=== PATIENT | male | born 1965 | race Caucasian/White ===

== ENCOUNTER → 2020-09-01 08:30 | Outpatient (CLI) | payer OTHER ==
[~2020-09-01 08:30] MED LIST: BAYER CHEWABLE81 MG PO; CELEXA20 MG PO; CO Q-10400 MG PO; COZAAR25 MG PO; GLIPIZIDE5 MG PO; GLUCOPHAGE500 MG PO; JARDIANCE10 MG PO; LIPITOR40 MG PO; MULTI-DAY VITAM1 TAB PO; OMEPRAZOLE20 M1 PO; OZEMPIC1 MG/0.75 SC; PROBIOTIC1 EAC1 PO; VISTARIL25 MG PO; VITAMIN C500 M1 PO
[2020-09-03 12:08] VITALS: BMI 36.8
== END | disposition home or self-care (01) ==
LOC: D.HCCECHO 08:30
PROVIDERS: ATTEND Internal Medicine Cardiovascular Disease
DX: I20.9 Angina pectoris, unspecified (principal)

== ENCOUNTER → 2020-09-03 11:25 | Day surgery (SDC) | payer OTHER ==
[~2020-09-03] VITALS: Ht 170.2 cm; Wt 106.6 kg
--- NOTE | ~2020-09-03 | HEMODYNAMI ---
PATIENT:CHRISTIN OROURKE MEDICAL RECORD: [id number] : 67 LOCATION:[facility] ADMISSION DATE: 09/03/20 Generatedon:114:15 Patient name: CHRISTIN OROURKE Patient #: [id number] SSN: : 1965 Date of study: 09/03/2020 Page: Of Hemodynamic Procedure Report Patient Data Patient Demographics Procedure consent was obtained First Name: CHRISTIN Gender: Male Last Name: HAVEN : 1965 Patient #: [id number] Age: 55 year(s) Race: Unknown Additional ID: [id number] Contact details [address]: [address] [place] [address] rd State: [place] City: [place] Zip code: [address] Past Medical History Performed procedures and imaging results Date Procedure Procedure Results Comments Stress testing Positive->Intermediate with SPECT MPI risk Allergies: No known allergies Admission Admission Data Admission Date: 09/03/2020 Admission Time: 11:25 Arrival Date: 09/03/2020 Arrival Time: 0:00 Height (in.): 66.93 BSA: 2.17 (m2) Height (cm.): 170 BMI: 37.02 (kg/m2) Weight (lbs.): 235.9 Weight (kg.): 107 Lab Results Lab Result Date: 09/03/2020 Lab Result Time: 0:00 Biochemistry Name Units Result Min Max BUN mg/dl 16 --(---*)-- 7 18 Creatinine mg/dl 1.1 --(--*-)-- 0.6 1.3 eGFR ml/min 73.09783 *-(----)-- 90 120 NONAFRICAN CBC Name Units Result Min Max Hematocrit % 49.8 --(--*-)-- 42 54 Hemoglobin g/dl 16.8 --(---*)-- 13.5 17.5 Procedure Procedure Types Cath Procedure Diagnostic Procedure C [facility] w/Coronaries Sedation Charges Moderate Sedation 10-24 minutes Procedure Description Procedure Date Procedure Date: 09/03/2020 Procedure Start Time: 14:01 Procedure End Time: 14:13 Procedure Staff Name Function Moo Gibbs MD Performing Physician Devorah Bermudez RT Monitor Misti Diop RT Scrub Terry Berry RN Nurse Procedure Data Cath Procedure Fluoroscopy Diagnostic fluoroscopy Total fluoroscopy Time: 1.6 time: 1.6 min min Diagnostic fluoroscopy Total fluoroscopy dose: 557 dose: 557 mGy mGy Contrast Material Contrast Material Type Amount (ml) Isovue 300 55 Entry Location Entry Primary Successful Side Size Upsize Upsize Entry Closure Succes sful Closure Location (Fr) 1 (Fr) 2 (Fr) Remarks Device Remarks Femoral Right 5 Fr Exoseal artery Estimated blood loss: 10 ml Diagnostic catheters Device Type Used For End Catheter Placement MULTIPACK JL 4.0 5Fr Procedure catheter MULTIPACK 3DRC 5Fr Procedure catheter MULTIPACK Pigtail 5 Fr Ventriculography catheter Procedure Complications No complications Procedure Medications Medication Administration Route Dosage 0.9% NaCl I.V. 100 ml/hr Oxygen etCO2 Nasal cannula 2 l/min Heparin Flush Bag added to field 2 bags (1000units/500ml NS) Lidocaine 2% added to field 20 Versed I.V. 2 mg Fentanyl I.V. 100 mcg Versed I.V. 1 mg Hemodynamics Rest BSA: 2.17 (m2) HGB: 16.8 (g/dl) O2 Consumption: Estimated: 252.23 (ml/min) O2 Co nsumption indexed: Estimated:116.24 (ml/min/m) Heart Rate: 63 (bpm) Pressure Samples Time Site Value (mmHg) Purpose Heart Use Rate(bpm) 14:07 LV 131/2,17 Snapshot 73 14:07 LV 128/0,16 Snapshot 73 14:08 AO 126/80(102) Pullback 75 14:08 LV 137/3,16 Pullback 75 Gradients Valve Time Site 1 Site 2 Mean SEP/DFP Peak To Heart Use (mmHg) (sec/min) Peak Rate (mmHg) (bpm) Aortic 14:08 LV AO 13 19 11 75 137/3,16 126/80(102) Calculations Valve P-P Mean Valve Index Valve Source Name Gradient Area Flow (cm2) Aortic 11 13 11 13 Snapshots Pre Cath Intra NCS Post Cath Vital Signs Time Heart Resp SPO2 etCO2 NIBP (mmHg) Rhythm Pain Sedation Rate (ipm) (%) (mmHg) Status Level (bpm) 13:40:33 66 15 93 31.6 123/74(102) NSR 0 (11) 10(A) , No pain 13:44:46 66 12 94 37.6 120/80(92) NSR 0 (11) 10(A) , No pain 13:48:57 63 30 94 38.3 117/75(96) NSR 0 (11) 10(A) , No pain 13:53:05 64 11 92 35.3 131/82(98) NSR 0 (11) 10(A) , No pain 13:57:15 62 12 93 42.1 121/76(101) NSR 0 (11) 10(A) , No pain 14:01:27 73 16 94 38.3 139/83(118) NSR 0 (11) 10(A) , No pain 14:05:41 76 12 92 37.6 133/78(119) NSR 0 (11) 10(A) , No pain 14:09:51 78 18 93 30.1 128/82(106) NSR 0 (11) 10(A) , No pain Medications Time Medication Route Dose Verified Delivered Reason Notes Eff ectiveness by by 13:38:50 0.9% NaCl I.V. 100 Terry Terry Per ml/hr Jamal Berry physician RN RN 13:38:58 Oxygen etCO2 2 Terry Terry for low 02 Nasal l/min Lorigan Lorigan sats cannula RN RN 13:39:08 Heparin Flush added 2 Terry Terry used for Bag to bags Lorigan Jamal procedure (1000units/500ml field RN RN NS) 13:39:17 Lidocaine 2% added 20ml Terry Terry for local to vial Lorigan Lorigan anesthetic field RN RN 13:53:25 Versed I.V. 2 mg Terry Terry for Lorigan Lorigan sedation RN RN 13:53:32 Fentanyl I.V. 100 Terry Terry for mcg Lorigan Lorigan sedation RN RN 14:00:28 Versed I.V. 1 mg Terry Terry for Lorigan Lorigan sedation RN reinforcing steel placer Log Time Note 13:11:31 Informed consent obtained and on chart 13:13:00 Procedure Status Elective Heart Cath (OP). 13:13:01 Time tracking: Regular hours (M-F 7:00 - 5:00) 13:13:05 Plan of Care:Hemodynamics will remain stable., Cardiac rhythm will remain stable., Comfort level will be maintained., Respiratory function will remain adequate., Patient/ family verbilizes understanding of procedure., Procedure tolerated without complication., Recovers from procedure without complications.. 13:13:12 H&P Date Dictated: 08/15/2020 Within 30 days and on chart., H&P Addendum completed by physician on day of procedure. (MUST COMPLETE FOR ALL OUTPATIENTS). 13:13:21 Patient allergic to No known allergies 13:15:14 Lab Result : BUN 16 mg/dl 13:15:14 Lab Result : eGFR NONAFRICAN 73.76097 ml/min 13:15:14 Lab Result : Creatinine 1.1 mg/dl 13:15:14 Lab Result : Hemoglobin 16.8 g/dl 13:15:14 Lab Result : Hematocrit 49.8 % 13:15:21 Patient Weight : 235.9 lbs 13:15:24 Patient Height : 66.93 inches 13:16:02 Arrival Date: 09/03/2020 12:00:00 AM 13:21:06 Stress Test: yes; abnormal INFERIOR 13:24:34 Terry Berry RN sent for patient. Start room use. 13:28:34 Patient received from Pre/Post Procedure Room to [facility] 2 Alert and oriented. Tansferred to table in Supine position. 13:28:36 Warm blankets applied, and timoteo hugger turned on for patient comfort. 13:28:36 Correct patient and procedure confirmed by team. 13:28:36 ECG and BP/O2 sat monitors applied to patient. 13:38:50 0.9% NaCl 100 ml/hr I.V. was administered by Terry Berry RN; Per physician; Verbal order read back and verified. 13:38:58 Oxygen 2 l/min etCO2 Nasal cannula was administered by Terry Berry RN; for low 02 sats; Verbal order read back and verified. 13:39:08 Heparin Flush Bag (1000units/500ml NS) 2 bags added to field was administered by Terry Berry RN; used for procedure; Verbal order read back and verified. 13:39:17 Lidocaine 2% 20ml vial added to field was administered by Terry Berry RN; for local anesthetic; Verbal order read back and verified. 13:39:21 Vital chart was started 13:44:04 Baseline sample Acquired. 13:44:06 Full Disclosure recording started 13:44:12 Family in waiting room. 13:44:14 Patient NPO since Midnight. 13:44:18 Is the patient allergic to Iodine/contrast media? No. 13:44:19 Is patient on blood thinner?No 13:44:37 Snore? Yes 13:44:38 Sleep apnea? Yes 13:44:45 Patient pain scale 0/10 ?. 13:44:52 IV patent on arrival in left forearm with 0.9% NaCl at [facility]. 13:45:00 Right groin area was prepped with chlora-prep and draped in sterile fashion 13:45:01 Alarms reviewed by R. N. 13:45:02 Sharps counted by scrub and verified by R.N. 13:49:28 If diabetic: On Metformin? Yes 13:49:30 Patient diabetic? Yes. 13:49:35 If on Metformin: Last Dose? 09/01/2020 13:52:43 Physician arrived 13:52:44 --------ALL STOP TIME OUT------ 13:52:45 Final Timeout: patient, procedure, and site verified with staff and physician. All members of the team are in agreement. 13:52:54 Right groin site verified by team. 13:52:58 Fire Safety Assessment: A--An alcohol-based skin anteseptic being used preoperatively., C--Open oxygen or nitrous oxide is being used., D--An ESU, laser, or fiber-optic light is being used. 13:53:02 Physical assessment completed. ASA score P 2 - A patient with mild systemic disease as per Moo Gibbs MD. 13:53:06 3b) 30-44 Moderately reduced kidney function. 13:53:10 Maximum allowable contrast dose (3.7 X eGFR X 0.75)205 ml. 13:53:14 Sedation plan: IV Moderate Sedation Medication:Versed, Fentanyl 13:53:25 Versed 2 mg I.V. was administered by Terry Berry RN; for sedation; Verbal order read back and verified. 13:53:32 Fentanyl 100 mcg I.V. was administered by Terry Berry RN; for sedation; Verbal order read back and verified. 13:58:04 Zero performed for pressure channel P1 14:00:28 Versed 1 mg I.V. was administered by Terry Berry RN; for sedation; Verbal order read back and verified. 14:01:46 Procedure started. 14:01:49 Local anesthetic to right femoral artery with Lidocaine 2% by Moo Gibbs MD.INITIAL ACCESS ONLY 14:03:37 A 5 Fr sheath was inserted into the Right Femoral artery 14:04:05 Use device set Femoral Dx 14:04:07 ACIST Syringe (70039) opened to sterile field. 14:04:08 Bag Decanter (2002S) opened to sterile field. 14:04:08 Medline Cath Pack ([id number]) opened to sterile field. 14:04:09 ACIST Hand Control (69185) opened to sterile field. 14:04:10 ACIST Manifold (46084) opened to sterile field. 14:04:11 DIAGNOSTIC Multipack 5Fr catheter set ([id number]) opened to sterile field. 14:04:12 Tegaderm 4 x 4 (1626W) opened to sterile field. 14:04:13 SHEATH 5FR Mobile ([id number]) opened to sterile field. 14:04:13 EMERALD Guide Wire (383-066) opened to sterile field. 14:04:23 A MULTIPACK JL 4.0 5Fr catheter was advanced over the wire and used for Procedure. 14:04:34 LCA angiography performed. 14:05:44 Catheter removed. 14:06:02 A MULTIPACK 3DRC 5Fr catheter was advanced over the wire and used for Procedure. 14:06:05 RCA angiography performed. 14:06:46 Catheter removed. 14:06:54 A MULTIPACK Pigtail 5 Fr catheter was advanced over the wire and used for Ventriculography. 14:07:36 LV angiography performed. 14:07:39 LV gram done using MONK 14:08:03 EF : 50 % 14:08:14 LV hemodynamics recorded. 14:08:15 Catheter removed. 14:08:19 EXOSEAL 5Fr (EX500) opened to sterile field. 14:08:36 Sheath removed intact; hemostasis achieved with Exoseal to the Right Femoral artery. 14:08:39 Procedure ended.(Physican Out) 14:10:49 Fluoroscopy time 01.60 minutes. 14:10:53 Fluoroscopy dose: 557 mGy 14:10:53 Flurop Dose total: 557 14:10:57 Dose Area Product 28129 mGy/cm. 14:11:36 Contrast amount:Isovue 300 55ml. 14:11:39 Maximum allowable dose exceeded? No. 14:11:43 Sharps counted by scrub and verified by R.N. 14:11:44 Insertion/operative site no bleeding no hematoma. 14:11:48 Post right femoral artery:stable 14:11:53 Post Procedure Pulses reassessed and unchanged 14:12:05 Post-procedure physical assessment completed. ASA score P 2 - A patient with mild systemic disease as per Moo Gibbs MD. 14:12:12 Post procedure rhythm: sinus rhythm 14:12:15 Estimated blood loss: 10 ml 14:12:17 Post procedure instruction explained to patient.Patient verbalizes understanding. 14:12:31 Procedure type changed to Cath procedure, Diagnostic procedure, LHC, C w/Coronaries, Sedation Charges, Moderate Sedation 10-24 minutes 14:12:41 Procedure and supply charges have been captured, reviewed, submitted and are correct. 14:13:08 Procedure Complication : No complications 14:13:11 Vital chart was stopped 14:13:13 [facility] Findings: mild to moderate CAD (<70%) 14:13:21 Operative report dictated upon procedure completion. 14:13:24 Report given to Pre/Post Procedure Room. 14:13:28 Patient transfered to Pre/Post Procedure Room with Stretcher. 14:13:30 Procedure ended. 14:13:30 Full Disclosure recording stopped 14:13:36 End room use (Document Last) 14:14:30 End room use (Document Last) 14:15:07 End room use (Document Last) Device Usage Item Name Manufacture Quantity Catalog Hospital Part Current Minimal L ot# / Number Charge Number Stock Stock Serial# Code ACIST Acist 1 92066 683584 392223 241614 20 Syringe Tube2Tone (00910) Systems Inc Bag Microtek 1 100247 53398 354660 5 Decanter Medical Inc. () Medline Medline 1 [id number] 385666 84446 606252 5 Cath Pack ([id number]) ACIST Hand Acist 1 77001 587341 622903 331910 5 Control Medical (48002) Systems Inc ACIST Acist 1 65559 628841 829226 061485 5 Manifold Medical (59762) Systems Inc DIAGNOSTIC Cardinal 1 [id number] 049479 26449 141321 30 Multipack Health 5Fr catheter set (XT9190) Tegaderm 4 3M 1 1626W 009064 635109 745013 5 x 4 (1626W) SHEATH 5FR Terumo 1 YNS947 343218 989522 409935 5 Mobile (TDT538) EMERALD Cardinal 1 502-405 385354 018178 855776 5 Guide Wire Health (502-691) MULTIPACK Cardinal 1 622192 5 JL 4.0 5Fr Health catheter MULTIPACK Cardinal 1 158881 5 3DRC 5Fr Health catheter MULTIPACK Cardinal 1 254876 5 Pigtail 5 Health Fr catheter EXOSEAL 5Fr Cardinal 1 EX500 760613 537267 502556 10 (EX500) Health Signature Audit [place] Stage Time Signature Unsigned Intra-Procedure 09/03/2020 Devorah Bermudez 2:14:30 PM RT(R) Intra-Procedure 09/03/2020 Terry 2:15:07 PM Jamal RN Intra-Procedure 09/03/2020 Moo Gibbs MD 2:15:33 PM Signatures Performing Physician : Signature : Moo Gibbs MD Date : Time : Monitor : Devorah Bermudez Signature : RT Date : Time : Nurse : Terry Berry Signature : RN Date : Time : [facility] [address] [facility] [place] [address]
[2020-09-03 12:08] VITALS: BP 122/72; Ht 170.2 cm; Wt 106.6 kg
[2020-09-03 12:15] LABS: HEMATOCRIT 49.8 % (42.0-54.0); HEMOGLOBIN 16.8 g/dL (13.5-17.5); LYMPHOCYTES 22.1 % (15-50); MCH 29.9 pg (26.0-34.0); MCHC 33.6 g/dL (31.0-37.0); MCV 88.8 fL (80.0-100.0); MEAN PLATELET VOLUME 8.3 fL (7.4-10.4); MONOCYTES 9.6 % (2-11); NEUTROPHILS 64.3 % (40-80); PLATELET COUNT 149 10x3/uL (130-400); RBC 5.61 10x6/uL (4.20-6.10)
[2020-09-03 12:28] LABS: ANION GAP 14.4 mmol/L (8-16); CALCIUM 9.5 mg/dL (8.5-10.1); CARBON DIOXIDE 24.7 mmol/L (21.0-32.0); CHOL - HDL RATIO 2.6 ratio (2.3-4.9); CREATININE - SERUM 1.1 mg/dL (0.6-1.3); LDL-HDL RATIO 1.1 ratio (1.5-3.5); POTASSIUM - SERUM 4.1 mmol/L (3.5-5.1)
--- NOTE | 2020-09-03 14:31 | NUR ---
PT REC'D TO CATH RECOVERY ROOM 3 VIA STRETCHER. MONITORS ESTAB. AT BS. SEE JALOUSIE INSTALLER FLOWSHEETS. ALARMS ON AND C/L IN REACH.
--- NOTE | 2020-09-03 14:45 | NUR ---
R GROIN SITE SOFT, NO S/S BLEEDING OR HEMATOMA. R LEG/FOOT WARM WITH PALP PULSES AND BRISK CAP REFILL. VSS. PT RESTING QUIETLY, NO SIGN OF DISTRESS. ALARMS ON AND C/L IN REACH.
--- NOTE | 2020-09-03 15:30 | NUR ---
R GROIN SITE SOFT, NO S/S BLEEDING OR HEMATOMA. PULSES PALP. HOB ELEVATED. SANDWICH AND DIET COLA PROVIDED. AT BS. VSS. ALARMS ON AND C/L IN REACH.
--- NOTE | 2020-09-03 15:55 | NUR ---
PT TOLERATED DIET, DENIES PAIN OR NEEDS. R GROIN SITE SOFT, NO S/S BLEEDING OR HEMATOMA. ALARMS ON AND C/L IN REACH.
--- NOTE | 2020-09-03 16:13 | NUR ---
ALL DISCHARGE INSTRUCTIONS REVIEWED WITH PT AND HIS , INCLUDING RESTRICTIONS, MEDS AND F/U APPT. BOTH VERBALIZE UNDERSTANDING. PIV D/C'D INTACT, DSG APPLIED. PT UP TO GET DRESSED AND GO TO BR INDEPENDENTLY.
--- NOTE | 2020-09-03 16:20 | NUR ---
DR. NUNEZ IN TO SEE PT, UPDATE GIVEN AND QUESTIONS ANSWERED.
--- NOTE | 2020-09-03 16:25 | NUR ---
PT D/C'D VIA WC TO PRIVATE VEHICLE WITH ALL PAPERWORK AND BELONGINGS.
== END | disposition home or self-care (01) ==
LOC: D.CATH 11:25
PROVIDERS: ATTEND Internal Medicine Cardiovascular Disease
DX: I20.8 Other forms of angina pectoris (principal); R94.39 Abnormal result of other cardiovascular function study; R07.9 Chest pain, unspecified